=== PATIENT | female | born 1970 | race Caucasian/White ===

== ENCOUNTER 2020-06-23 09:30 | Outpatient (CLI) | payer OTHER, SELFPAY ==
--- NOTE | ~2020-06-23 | MM_ITS ---
EXAMINATION: MM screening [facility] BI w erasto HISTORY: Screening mammogram TECHNIQUE: Craniocaudal and mediolateral oblique 3-D tomosynthesis images were obtained and synthetic 2-D images were generated. CAD analysis was submitted and interpreted. COMPARISON: 05/02/2019, 09/05/2017 bilateral digital screening mammogram examinations 07/07/2016 bilateral diagnostic digital mammogram and Limited bilateral breast ultrasound examination 07/06/2016 bilateral digital screening mammogram BREAST PARENCHYMAL COMPOSITION: There are scattered areas of fibroglandular density. FINDINGS: Stable mild fibroglandular asymmetry. There is no evidence of suspicious mass, calcificatio n, or architectural distortion to suggest malignancy in either breast. There has been no suspicious i nterval change. IMPRESSION: 1. No mammographic evidence of malignancy. 2. Recommend routine screening mammography in one year. BI-RADS Category 2: Benign finding(s). Reviewed, dictated and finalized at location A. OP ENGINEER
== END 2020-06-23 09:31 | disposition home or self-care (01) ==
LOC: ANHIMG 09:34
PROVIDERS: PCP Internal Medicine; Visit Provider Nurse Practitioner
DX: Z12.31 Encounter for screening mammogram for malignant neoplasm of breast (principal)
CPT/HCPCS: 77063; 77067

== ENCOUNTER 2021-07-29 08:28 | Outpatient (CLI) | payer OTHER, SELFPAY ==
--- NOTE | ~2021-07-29 | MM_ITS ---
EXAMINATION: MM screening [facility] BI w erasto HISTORY: Screening mammogram TECHNIQUE: Craniocaudal and mediolateral oblique 3-D tomosynthesis images were obtained and synthetic 2-D images were generated. CAD analysis was submitted and interpreted. COMPARISON: 06/23/2020, 05/02/2019, 08/26/2017 BREAST PARENCHYMAL COMPOSITION: There are scattered areas of fibroglandular density. FINDINGS: There is no evidence of suspicious mass, calcification, or architectural distortion to sugg est malignancy in either breast. There has been no suspicious interval change. IMPRESSION: 1. No mammographic evidence of malignancy. 2. Recommend routine screening mammography in one year. BI-RADS Category 1: Negative Reviewed, dictated and finalized at location A. GAGE PROTECTION SPECIALIST
== END 2021-07-29 08:29 | disposition home or self-care (01) ==
LOC: ANHIMG 08:30
PROVIDERS: PCP Internal Medicine; Visit Provider Nurse Practitioner
DX: Z12.31 Encounter for screening mammogram for malignant neoplasm of breast (principal)
CPT/HCPCS: 77063; 77067

== ENCOUNTER 2022-08-24 07:49 | Outpatient (CLI) | payer OTHER, SELFPAY ==
--- NOTE | ~2022-08-24 | MM_ITS ---
EXAMINATION: MM screening jacklyn BI w erasto HISTORY: Screening TECHNIQUE: Craniocaudal and mediolateral oblique 3-D tomosynthesis images were obtained and synthetic 2-D images were generated. CAD analysis was submitted and interpreted. COMPARISON: Comparison to multiple prior studies sequentially, with oldest reviewed study dated 06/22. BREAST PARENCHYMAL COMPOSITION: There are scattered areas of fibroglandular density. FINDINGS: There is no evidence of suspicious mass, calcification, or architectural distortion to sugg est malignancy in either breast. There has been no suspicious interval change. IMPRESSION: 1. No mammographic evidence of malignancy. 2. Recommend routine screening mammography in one year. BI-RADS Category 1: Negative Reviewed, dictated and finalized at location A. IC OPINION SURVEY TAKER
== END 2022-08-24 07:50 | disposition home or self-care (01) ==
PROVIDERS: PCP Internal Medicine; Visit Provider Nurse Practitioner
DX: Z12.31 Encounter for screening mammogram for malignant neoplasm of breast (principal)
CPT/HCPCS: 77063; 77067

== ENCOUNTER 2023-10-17 14:14 | Outpatient (CLI) | payer OTHER, SELFPAY ==
--- NOTE | ~2023-10-17 | MM_ITS ---
EXAMINATION: MM screening jacklyn BI w erasto HISTORY: Screening mammogram TECHNIQUE: Craniocaudal and mediolateral oblique 3-D tomosynthesis images were obtained and synthetic 2-D images were generated. CAD analysis was submitted and interpreted. COMPARISON: August 24, 2022, July 29, 2021 bilateral screening mammogram examinations BREAST PARENCHYMAL COMPOSITION: There are scattered areas of fibroglandular density. FINDINGS: Occasional bilateral small low-density circumscribed masses. There is no evidence of suspic ious mass, calcification, or architectural distortion to suggest malignancy in either breast. There h as been no suspicious interval change. IMPRESSION: 1. No mammographic evidence of malignancy. 2. Recommend routine screening mammography in one year. BI-RADS Category 2: Benign finding(s). Reviewed, dictated and finalized at location A.
== END 2023-10-17 14:15 | disposition home or self-care (01) ==
LOC: ANHIMG 14:17
PROVIDERS: PCP Internal Medicine; Visit Provider Nurse Practitioner
DX: Z12.31 Encounter for screening mammogram for malignant neoplasm of breast (principal)
CPT/HCPCS: 77063; 77067

== ENCOUNTER 2024-10-30 12:17 | Outpatient (CLI) | payer OTHER, SELFPAY ==
--- NOTE | ~2024-10-30 | MM_ITS ---
EXAMINATION: MM screening [facility] BI w erasto HISTORY: Screening TECHNIQUE: Craniocaudal and mediolateral oblique 3-D tomosynthesis images were obtained and synthetic 2-D images were generated. CAD analysis was submitted and interpreted. COMPARISON: Comparison to multiple prior studies sequentially, with oldest reviewed study dated 09/05. BREAST PARENCHYMAL COMPOSITION: Not dense: There are scattered areas of fibroglandular density. FINDINGS: There is a new mass in the lower outer quadrant of the right breast, middle third. The left breast is stable without evidence for malignancy. There are stable intramammary lymph nodes in the u pper outer quadrant. IMPRESSION: 1. New right breast mass, lower outer quadrant, middle third. 2. Additional mammographic views and possible breast ultrasound are recommended. BI-RADS Category 0: Incomplete: Needs additional imaging evaluation. Reviewed, dictated and finalized at location A. IMPRESSION: 1. New right breast mass, lower outer quadrant, middle third. 2. Additional mammographic views and possible breast ultrasound are recommended . BI-RADS Category 0: Incomplete: Needs additional imaging evaluation.
--- NOTE | ~2024-10-30 | DEXA_ITS ---
Bone Density Report Name: LORI AMAYA Age: 54 Sex: Female Ethnicity: White Date of : 1970 Indication: postmenopausal; screening for osteoporosis; height loss; Referring Provider: FAMILIA, GUILLERMINA Study: Bone densitometry was performed. Exam Date: October 30, 2024 Accession number: [id number] Bone Density: Region BMD T-score Z-score Classification AP Spine(L1-L4) 0.969 -0.7 0.2 Normal Femoral Neck (Left) 0.721 -1.2 -0.2 Osteopenia Total Hip (Left) 0.978 0.3 0.9 Normal Femoral Neck (Right) 0.626 -2.0 -1.1 Osteopenia Total Hip (Right) 0.965 0.2 0.8 Normal Femoral Neck Mean 0.673 -1.6 -0.7 Osteopenia Total Hip Mean 0.971 0.2 0.8 Normal World Health Organization criteria for BMD impression classify patients as: Normal (T-score at or above -1.0), Osteopenia (T-score between -1.0 and -2.5), or Osteoporosis (T-score at or below -2.5). Clinical Information Provided by Patient: Patient maximum height was 64 No regular weight bearing exercise Drinks caffeinated beverages Onset of menses at age 15 Number of children 2 Impression: The patient has low bone mass, based on the Right Femoral Neck T-score. Discussion: BONE DENSITY IS LOW AT ONE OR MORE SKELETAL SITES. This patient's lowest T-score is low at one or more skeletal sites. It meets the World Health Organization's (WHO) criteria for ?low bone mass? (T-score between -1.0 and -2.5). The patient's 10-year risk of fracture as calculated by FRAX is less than the threshold where pharmacological therapy is recommended by the National Osteoporosis Foundation (NOF). However, all treatment decisions require clinical judgment and consideration of individual patient factors, including patient preferences, comorbidities, previous drug use, risk factors not captured in the FRAX model (e.g., frailty, falls, vitamin D deficiency, increased bone turnover, interval significant decline in bone density) and possible under or overestimation of fracture risk by FRAX. The patient should follow a healthful lifestyle (good nutrition with adequate calcium and vitamin D, and appropriate weight-bearing exercise). Follow-Up: Consider repeating this study in 2 to 3 years to reassess this patient's status, or sooner if there is some new clinical indication. Reported by: REINIER on 10/31/2024 7:16:00 AM. Reviewed, dictated and finalized at location A.
--- OUTSIDE RECORDS SUMMARY | 2024-10-30 12:44 | XMS_ITS | Referral Summary ---
Author Organization [address] Address [address] [place] [phone] Care Team Providers Care Asset Analyst Name Role Phone Ricardo Tran MD Primary Care Provider [phone] Allergies Active Allergy Reactions Criticality Noted Date Comments Amoxicillin Rash Medium 04/21/2018 Medications levothyroxine (SYNTHROID, LEVOTHROID) 75 mcg tablet TK 1 T PO QD 3 03/20/2018 Active FLUZONE QUAD 7657-9130, PF, 60 mcg (15 mcg x 4)/0.5 mL syringe ADM 0.5ML IM UTD 0 05/05/2018 Active Active Problems Problem Noted Date Diagnosed Date Screening for colon cancer 01/10/2022 Overview (01/10/2022): Added automatically from request for surgery [id number] Social History Tobacco Use Types Packs/Day Years Used Date Smoking Tobacco: Never Smokeless Tobacco: Never Personal Safety Answer Date Recorded Getting School Help Needed Not on file 10/06 Comments Unknown Sex and Gender Information Value Date Recorded Sex Assigned at Not on file Legal Sex Female 8:41 PM CDT Gender Identity Not on file Sexual Orientation Not on file Last Filed Vital Signs Vital Sign Reading Time Taken Comments Blood Pressure 130/78 01/20/2022 11:35 AM CDT Pulse 76 01/20/2022 11:35 AM CDT Temperature 36.5 C (97.7 F) 01/20/2022 11:35 AM CDT Respiratory Rate 18 01/20/2022 11:35 AM CDT Oxygen Saturation 98% 01/20/2022 11:35 AM CDT Inhaled Oxygen Concentration - - Weight 79.8 kg (176 lb) 01/20/2022 9:39 AM CDT Height 160 cm (5' 3 ) 01/20/2022 9:39 AM CDT Body Mass Index 31.18 01/20/2022 9:39 AM CDT Plan of Treatment Not on file Procedures Procedure Name Priority Date/Time Associated Diagnosis Comments COLONOSCOPY 01/20/2022 9:37 AM CDT from Last 3 Months or Most Recently Relevant to Health Maintenance Results * COLONOSCOPY (01/20/2022 9:37 AM CDT) Anatomical Region Laterality Modality Other Narrative Procedure Note Paul Holley MD - 01/20/2022 9:37 AM CDT [facility] Patient Name: Lori Herrera Procedure Date: 01/20/2022 9:37 AM Date of : 1970 Admit Type: Outpatient Age: 51 Gender: Female Attending MD: Paul Holley M.D. Room: [facility] ENDOSCOPY ROOM 2 Note Status: Finalized Patient Profile: Refer to note in patient chart for documentation of history and physical. Procedure: Colonoscopy Indications: Screening for colorectal malignant neoplasm, Thisis the patient's first colonoscopy Referring MD: Ricardo Sands M.D. Providers: Paul Holley M.D. Impression: - Hemorrhoids found on perianal exam. - Diverticulosis at the hepatic flexure. - The examination was otherwise normal. - No specimens collected. Recommendation: - Discharge patient to home. - Resume previous diet. - Continue present medications. - Repeat colonoscopy in 10 years for screening purposes. - Return to primary care physician as previously scheduled. Medicines: Propofol per Anesthesia Complications: No immediate complications. Estimated Blood Loss: Estimated blood loss: none. Procedure: Pre-Anesthesia Assessment: - This assessment was completed [Time ofAssessment] prior to the administration of sedation. The benefits, risks and alternatives of theprocedure and sedation were discussed and informed consentwas obtained. All questions were answered. Please referto the signed informed consent document in the medical record. The bowel preparation used was Miralax via single dose instruction. The bowel preparation used was bisacodyl tablets via single dose instruction.The scope was passed under direct vision. TheColonoscope [id number] was introduced through the anus and advanced to the the cecum, identified by appendiceal orifice and ileocecal valve. The colonoscopy was performed without difficulty. The patient tolerated the procedure well. The qualityof the bowel preparation was good. The ileocecalvalve, appendiceal orifice, and rectum werephotographed. Findings: Hemorrhoids were found on perianal exam. A single small-mouthed diverticulum was found in the hepaticflexure. The exam was otherwise without abnormality. Electronically signed by Paul Holley M.D. Paul Holley M.D. 01/20/2022 11:07:00 AM Number of Addenda: 0 Note Initiated On: 01/20/2022 9:37 AM Procedure Code(s): --- Professional --- G0121, Colorectal cancer screening; colonoscopy on individual not meeting criteria for high risk Diagnosis Code(s): --- Professional --- K57.30, Diverticulosis of large intestine without perforation orabscess without bleeding K64.9, Unspecified hemorrhoids Z12.11, Encounter for screening for malignant neoplasm of colon CPT copyright 2020 [employer]. All rights reserved. The codes documented in this report are preliminary and upon machine shop worker reviewmay be revised to meet current compliance requirements. Recognized by the [employer] for promoting quality in endoscopy Paul Holley MD ENDOSCOPY PROCEDURES Final Re sult from Last 3 Months or Most Recently Relevant to Health Maintenance Insurance [facility] CHOICE PLUS [facility] HMO/PPO Address: [place] [address] [facility] CHOICE PLUS [facility] H[facility]/PPO Address: [address] [address] [place] [address] Advance Directives For more information, please contact: [phone] * Full Code (Latest Code Status on File) Date Activated Date Inactivated Comments 01/20/2022 9:32 AM 01/20/2022 3:59 PM * Full Code Date Activated Date Inactivated Comments 01/20/2022 9:32 AM 01/20/2022 9:32 AM Care Teams Asset Analyst Relationship Specialty Start Date End Date Ricardo Tran MD [address] [place] [address] PCP - General 01/20/22
--- OUTSIDE RECORDS SUMMARY | 2024-10-30 12:44 | XMS_ITS | Clinical Summary ---
Author Organization [address] Address [address] [place] [id number] Care Team Providers Care Spray Dyer Name Role Phone Ricardo Tran MD Primary Care Provider [phone] Allergies Active Allergy Reactions Criticality Noted Date Comments Amoxicillin Rash Medium 04/21/2018 Medications levothyroxine (SYNTHROID, LEVOTHROID) 75 mcg tablet TK 1 T PO QD 3 03/20/2018 Active FLUZONE QUAD 8647-4380, PF, 60 mcg (15 mcg x 4)/0.5 mL syringe ADM 0.5ML IM UTD 0 05/05/2018 Active Active Problems Problem Noted Date Diagnosed Date Screening for colon cancer 01/10/2022 Overview (01/10/2022): Added automatically from request for surgery [id number] Surgical History Surgery Date Site/Laterality Comments COLONOSCOPY 01/20/2022 Medical History Medical History Date Comments Thyroid disease Social History Tobacco Use Types Packs/Day Years Used Date Smoking Tobacco: Never Smokeless Tobacco: Never Personal Safety Answer Date Recorded Getting School Help Needed Not on file 10/06 Comments Unknown Sex and Gender Information Value Date Recorded Sex Assigned at Not on file Legal Sex Female 8:41 PM CDT Gender Identity Not on file Sexual Orientation Not on file Obstetrics History Last Filed Vital Signs Vital Sign Reading [...] 01/20/2022 9:39 AM CDT Plan of Treatment Health Maintenance Due Date Last Done Comments Breast Cancer Screening-Mammogram 1970 Cervical Cancer Screening 1970 Depression Screening 1970 Hepatitis C Screening 1970 DTaP/Tdap/Td Vaccine (1 - Tdap) 10/03/1982 Hepatitis B Screening 10/03/1989 Regular Well Visit/Exam 18-64 10/03/1989 Zoster Vaccine (1 of 2) 10/03/2021 Influenza Vaccine (Season Ended) 2025 Colon Cancer Screening-Colonoscopy 01/21/20322021 Pneumococcal vaccine <65 Aged Out No longer eligible based on patient's age to complete this topic Procedures Procedure Name Priority Date/Time Associated Diagnosis Comments COLONOSCOPY 01/20/2022 9:37 AM CDT from Last 3 Months or Most Recently Relevant to Health Maintenance Results * COLONOSCOPY (01/20/2022 9:37 AM CDT) Anatomical Region Laterality Modality Other Narrative Procedure Note Paul Holley MD - 01/20/2022 9:37 AM CDT [facility] Patient Name: Lori Herrera Procedure Date: 01/20/2022 9:37 AM Date of : 1970 Admit Type: Outpatient Age: 51 Gender: Female Attending MD: Paul Holley M.D. Room: [facility] 2 Note Status: Finalized Patient [...] scope was passed under direct vision. TheColonoscope [id number] was introduced through the anus and advanced [...] malignant neoplasm of colon CPT copyright 2020 [employer]. All rights reserved. The codes documented in this report are preliminary and upon hvac installer reviewmay be revised to meet current compliance requirements. Recognized by the [employer] for promoting quality in endoscopy Paul Holley MD ENDOSCOPY PROCEDURES Final Re sult from Last 3 Months or Most Recently Relevant to Health Maintenance Insurance [facility] CHOICE PLUS [place] [id number] CHOICE PLUS Advance Directives For more information, please contact: [phone] * Full Code (Latest Code Status on File) Date Activated Date Inactivated Comments 01/20/2022 9:32 AM 01/20/2022 3:59 PM * Full Code Date Activated Date Inactivated Comments 01/20/2022 9:32 AM 01/20/2022 9:32 AM Care Teams Spray Dyer Relationship Specialty Start Date End Date Ricardo Tran MD [address] [place] [id number] PCP - General 01/20/22
== END 2024-10-30 12:18 | disposition home or self-care (01) ==
LOC: CHSIMG 12:21
PROVIDERS: PCP Internal Medicine; Visit Provider Nurse Practitioner Women's Health
DX: Z12.31 Encounter for screening mammogram for malignant neoplasm of breast (principal); Z78.0 Asymptomatic menopausal state; M85.89 Other specified disorders of bone density and structure, multiple sites; R92.8 Other abnormal and inconclusive findings on diagnostic imaging of breast
CPT/HCPCS: 77063; 77067; 77080

== ENCOUNTER 2024-11-04 08:47 | Outpatient (CLI) | payer OTHER, SELFPAY ==
--- NOTE | ~2024-11-04 | MMUS_ITS ---
EXAMINATION: MM diagnostic jacklyn RT w erasto, US breast RT limited HISTORY: Follow-up right breast mass TECHNIQUE: Additional 3-D tomosynthesis images of the right breast were performed and synthetic 2-D i mages were generated. CAD analysis was submitted and interpreted. High resolution Limited right breas t ultrasound was performed. COMPARISON: Comparison to multiple prior studies sequentially, with oldest reviewed study dated 04/22. BREAST PARENCHYMAL COMPOSITION: Not dense: There are scattered areas of fibroglandular density. FINDINGS: MAMMOGRAPHIC FINDINGS: There is a persistent mass in the lower aspect of the right breast. There are no suspicious calcifica tions or architectural distortion. ULTRASOUND: Limited right breast ultrasound: At 7:00, 5 cm from the nipple there is an oval circumscribed paralle l oriented hypoechoic mass measuring 5 mm without internal vascularity or posterior features. At 7:00 , 5 cm from the nipple there is a 4 mm cyst. At 9:00, 8 cm from the nipple there is a 6 mm cyst. IMPRESSION: 1. Probable benign findings of the right breast. 2. Recommend 6 month follow-up diagnostic right mammogram and Limited right breast ultrasound BI-RADS category 3, probably benign findings. Reviewed, dictated and finalized at location B. IMPRESSION: 1. Probable benign findings of the right breast. 2. Recommend 6 month follow-up diagnostic right mammogram and Limited right pranav ast ultrasound BI-RADS category 3, probably benign findings.
--- OUTSIDE RECORDS SUMMARY | 2024-11-04 09:08 | XMS_ITS | Referral Summary ---
Author Organization [address] Address [address] [place] [phone] Care Team Providers Care Laborer Wrecking And Salvaging Name Role Phone Ricardo Tran MD Primary Care Provider [phone] Allergies Active Allergy Reactions Criticality Noted Date Comments Amoxicillin Rash Medium 04/21/2018 Medications levothyroxine (SYNTHROID, LEVOTHROID) 75 mcg tablet TK 1 T PO QD 3 03/20/2018 Active FLUZONE QUAD 9620-3953, PF, 60 mcg (15 mcg x 4)/0.5 mL syringe ADM 0.5ML IM UTD 0 05/05/2018 Active Active Problems Problem Noted Date Diagnosed Date Screening for colon cancer 01/10/2022 Overview (01/10/2022): Added automatically from request for surgery [id number] Social History Tobacco Use Types Packs/Day Years [...] Holley MD - 01/20/2022 9:37 AM CDT [facility] Patient Name: Lori Herrera Procedure Date: 01/20/2022 9:37 AM Date of : 1970 Admit Type: Outpatient Age: 51 Gender: Female Attending MD: Paul Holley M.D. Room: [facility] ROOM 2 Note Status: Finalized [...] scope was passed under direct vision. TheColonoscope [id number] was introduced through the anus and advanced [...] malignant neoplasm of colon CPT copyright 2020 [employer] [employer]. All rights reserved. The codes documented in this report are preliminary and upon restorative coordinator reviewmay be revised to meet current compliance requirements. Recognized by the [employer] [place] [employer]intestinal Endoscopy for promoting quality in endoscopy Paul Holley MD ENDOSCOPY PROCEDURES Final Re sult from Last 3 Months or Most Recently Relevant to Health Maintenance Insurance [facility] CHOICE PLUS [facility] CHOICE PLUS Advance Directives For more information, please contact: [phone] * Full Code (Latest Code Status on File) Date Activated Date Inactivated Comments 01/20/2022 9:32 AM 01/20/2022 3:59 PM * Full Code Date Activated Date Inactivated Comments 01/20/2022 9:32 AM 01/20/2022 9:32 AM Care Teams Laborer Wrecking And Salvaging Relationship Specialty Start Date End Date Ricardo Tran MD [address] [place] [address] PCP - General 01/20/22
--- OUTSIDE RECORDS SUMMARY | 2024-11-04 09:08 | XMS_ITS | Clinical Summary ---
Author Organization [address] Address [address] [place] [phone] Care Team Providers Care Stapler Hand Name Role Phone Ricardo Tran MD Primary Care Provider [phone] Allergies Active Allergy Reactions Criticality Noted Date Comments Amoxicillin Rash Medium 04/21/2018 Medications levothyroxine (SYNTHROID, LEVOTHROID) 75 mcg tablet TK 1 T PO QD 3 03/20/2018 Active FLUZONE QUAD 3692-9026, PF, 60 mcg (15 mcg x 4)/0.5 mL syringe ADM 0.5ML IM UTD 0 05/05/2018 Active Active Problems Problem Noted Date Diagnosed Date Screening for colon cancer 01/10/2022 Overview (01/10/2022): Added automatically from request for surgery [id number] Surgical History Surgery Date Site/Laterality Comments COLONOSCOPY [...] Female Attending MD: Paul Holley M.D. Room: [facility] ENDOSCOPY ROOM 2 Note Status: Finalized [...] scope was passed under direct vision. TheColonoscope [id number] was introduced through the anus and advanced [...] malignant neoplasm of colon CPT copyright 2020 [employer]. All rights reserved. The codes documented in this report are preliminary and upon counter intelligence reviewmay be revised to meet current compliance requirements. Recognized by the [employer] for promoting quality in endoscopy Paul Holley MD ENDOSCOPY PROCEDURES Final Re sult from Last 3 Months or Most Recently Relevant to Health Maintenance Insurance [facility] CHOICE PLUS [facility] H[facility]/PPO Address: [address] [address] [place] [id number] CHOICE PLUS [facility] H[facility]/PPO Address: [facility] [address] [place] [address] Advance Directives For more information, please contact: [phone] * Full Code (Latest Code Status on File) Date Activated Date Inactivated Comments 01/20/2022 9:32 AM 01/20/2022 3:59 PM * Full Code Date Activated Date Inactivated Comments 01/20/2022 9:32 AM 01/20/2022 9:32 AM Care Teams Stapler Hand Relationship Specialty Start Date End Date Ricardo Tran MD [address] [place] [id number] PCP - General 01/20/22
== END 2024-11-04 08:48 | disposition home or self-care (01) ==
PROVIDERS: PCP Internal Medicine; Visit Provider Obstetrics & Gynecology Gynecology
DX: R92.8 Other abnormal and inconclusive findings on diagnostic imaging of breast (principal)
CPT/HCPCS: 76642; 77061; 77065; G0279

== ENCOUNTER 2025-03-31 07:17 | Outpatient (CLI) | payer OTHER, SELFPAY ==
--- NOTE | ~2025-03-31 | US_ITS ---
EXAMINATION: US pelvic complete w TV DATE: 03/31/2025 07:47 INDICATION: Postmenopausal bleeding. TECHNIQUE: Multiple transabdominal and transvaginal sonographic images of the pelvis were obtained. COMPARISON: Ultrasound 08/18/2009 FINDINGS: TRANSABDOMINAL ULTRASOUND: The uterus measures 8.2 x 4.4 x 3.8 cm. There is no free fluid in the pelvis. TRANSVAGINAL ULTRASOUND: The endometrial complex measures 7 mm in thickness. There is a 1.2 cm intramural fibroid. There are nabothian cysts in the cervix. The right ovary is not visualized. The left ovary measures 1.3 x 1.2 x 1.0 cm. IMPRESSION: 1. Thickened endometrial complex. The differential diagnosis includes endometrial hyperplasia, polyp, and carcinoma. Consider biopsy. 2. Uterine fibroid. Reviewed, dictated and finalized at location E. IMPRESSION: 1. Thickened endometrial complex. The differential diagnosis includes endometri al hyperplasia, polyp, and carcinoma. Consider biopsy. 2. Uterine fibroid.
== END 2025-03-31 07:18 | disposition home or self-care (01) ==
PROVIDERS: PCP Nurse Practitioner Family
DX: N95.0 Postmenopausal bleeding (principal); R93.89 Abnormal findings on diagnostic imaging of other specified body structures; D25.9 Leiomyoma of uterus, unspecified
CPT/HCPCS: 76830; 76856

== ENCOUNTER 2025-04-06 01:06 | Day surgery (SDC) | payer OTHER, SELFPAY ==
[2025-04-02 16:05] VITALS: BMI 33.5
--- NOTE | 2025-04-02 16:11 | PC.NURSE ---
Report to the Outpatient Waiting Room, entrance under the green pavilion located off [facility], at time _0715_ on date _[id number]_. Planned Procedure Time: _09_.? Time changes happen often and if your time is changed the preop area will call you the afternoon before. - You and your visitor will be asked to self-screen and do not enter if you have any COVID symptoms. Please call surgeon if you need to reschedule. - A mask is optional within the hospital at this time. Patients may have clear liquids (water, carbonated beverages, clear teas, apple juice) until 3 hours prior to surgery with a maximum of 20 ounces. - No food from midnight until time of surgery and no smoking, or chewing tobacco (or any form of nicotine). No chewing gum, candy or mints. Take only the following medications with a SIP of water on the morning of surgery: __Levothyroxine___ DO NOT STOP ANY OF YOUR OTHER PRESCRIPTION MEDICATIONS PRIOR TO SURGERY EXCEPT THE FOLLOWING Hold all vitamins and supplements for 3 days per anesthesiologist. Medications to discontinue per physician Date to take last dose Please no make-up, nail yemeni, hairspray, perfume, deodorant, or body powder the day of surgery.? No jewelry (including any body piercings) or valuables the day of surgery, leave them at home.? Please take a shower or bath the night before, or the morning of, surgery with an antibacterial soap.? Wear comfortable, loose fitting clothing.? - Jewelry must be removed prior to entering the operating room.? Rings and piercings that are not removed may be cut off. - The hospital will not accept responsibility for valuables.? - Please leave all valuables, including medications, at home the day of surgery. If you are going home after surgery, a licensed flatbed company driver must drive you home.? - NO public transportation without another adult if you receive anesthesia. - We recommend that an adult stay with you for 24 hours following discharge. - We also recommend that you do not drive, make important decision, drink alcoholic beverages, or take any drugs that were not prescribed by your health care provider for at least 24 hours after your discharge time. Follow any additional instructions given to you from your surgeon. Telephone instructions given to ___Jill__and asked if any additional questions and then verbalized understanding. Patient advised to call surgeon office or pre surgery nurse liaison [phone] if any additional questions.
--- OUTSIDE RECORDS SUMMARY | 2025-04-06 01:09 | XMS_ITS | Clinical Summary ---
Author Organization [address] Address [address] [place] [id number] Care Team Providers Care Unix Manager Name Role Phone Aliyah Thompson NP Primary Care Provider [phone] Stephany Weaver MD Unavailable [phone] Allergies Active Allergy Reactions Criticality Noted Date Comments Amoxicillin Rash Medium 04/21/2018 Medications levothyroxine (SYNTHROID, LEVOTHROID) 75 mcg tablet TK 1 T PO QD 3 03/20/2018 Activ e FLUZONE QUAD [id number], PF, 60 mcg (15 mcg x 4)/0.5 mL syringe ADM 0.5ML IM UTD 0 05/05/2018 Active ibandronate (BONIVA) 150 mg tablet Take 1 tablet (150 mg total) by mouth every 30 (thirty) days 11/14/2024 Active atorvastatin (LIPITOR) 10 mg tablet Take 1 tablet (10 mg total) by mouth daily Active cholecalciferol (VITAMIN D-3) 50,000 unit capsule Take 1 capsule (50,000 Units total) by mouth once a week Active Active Problems Problem Noted Date Diagnosed Date White coat syndrome without diagnosis of hyperte nsion 02/04/2025 Assessment & Plan (02/08/2025 11:07 AM CDT): Mixed hyperlipidemia 02/04/2025 Assessment & Plan (02/08/2025 11:07 AM CDT): Osteopenia after menopause 02/04/2025 Acquired hypothyroidism 02/04/2025 Assessment & Plan (02/08/2025 11:07 AM CDT): Screening for colon cancer 01/10/2022 Overview (01/10/2022): Added automatically from request for surgery [id number] Encounters Date Type Department Care Team Description 02/08/2025 Results Follow-Up [facility] Medical [facility] at [address] [phone] Aliyah Thompson NP Gamma GT, Comprehensive metabolic panel, eGFR 02/06/2025 9:48 AM CDT - 02/06/2025 11:59 PM CDT Hospital Encounter [address] [address] Elevated liver enzymes Discharge Disposition: Discharge to home or self care 02/06/2025 9:45 AM CDT Lab [facility] Outpatient Lab at [address] [phone] 02/04/2025 12:30 PM CDT Office Visit [facility] Primary [facility] at [address] [phone] Aliyah Thompson NP Mixed hyperlipidemia (Primary Dx); Acquired hypothyroidism; White coat syndrome without diagnosis of hypertension; Elevated liver enzymes 02/04/2025 Orders Only [facility] Primary [facility] at [address] [phone] ProviderLio MD 02/04/2025 Telephone [facility] at [address] [phone] Aliyah Thompson NP from Last 3 Months Immunizations Immunization Administration Dates Next Due Influenza, Quadrivalent, Spl it, Intramuscular 05/03/2019 Influenza, Quadrivalent, Spl it, Preservative Free, Intramuscular 05/18/2021,05/08/2020,05/04/2018,05/02 Influenza, Trivalent, IM (MDV) 05/02/2017,2012 Influenza, Trivalent, Preser vative Free, Intramuscular 03/25/2016,05/14/2015 Influenza, Trivalent, Recomb inant, Egg Free, Preservative Free, Antibiotic Free, IM (FLUBLOK) 05/16/2024 Surgical History Surgery Date Site/Laterality Comments COLONOSCOPY 01/20/2022 Medical History Medical History Date Comments Thyroid disease Osteopenia Hyperlipidemia Family History Medical History Relation Name Comments Hypertension Mother Kidney disease Mother Stroke Mother Breast cancer Paternal Grandmother Relation Name Status Comments Mother Paternal Grandmother Social History Tobacco Use Types Packs/Day Years Used Date Smoking Tobacco: Never Smokeless Tobacco: Never PHQ-2 Answer Date Recorded PHQ-2 Total Score (If total score is 3 or more points, staff should administer the PHQ-9) 0 02/04/2025 Comments Unknown Sex and Gender Information Value Date Recorded Sex Assigned at Not on file Legal Sex Female 8:41 PM CDT Gender Identity Not on file Sexual Orientation Not on file Obstetrics History Last Filed Vital Signs Vital Sign Reading Time Taken Comments Blood Pressure 170/104 02/04/2025 11:34 AM CDT Pulse 88 02/04/2025 11:34 AM CDT Temperature 36.6 C (97.8 F) 02/04/2025 11:34 AM CDT Respiratory Rate 18 01/20/2022 11:35 AM CDT Oxygen Saturation 98% 02/04/2025 11:34 AM CDT Inhaled Oxygen Concentration - - Weight 88 kg (194 lb) 02/04/2025 11:34 AM CDT Height 162.6 cm (5' 4) 02/04/2025 11:34 AM CDT Body Mass Index 33.3 02/04/2025 11:34 AM CDT Plan of Treatment Health Maintenance Due Date Last Done Comments Hepatitis C Screening 1970 DTaP/Tdap/Td Vaccine (1 - Tdap) 10/03/1982 Hepatitis B Screening 10/03/1989 Regular Well Visit/Exam 18-64 10/03/1989 Covid-19 Vaccine (3 - Pfizer risk series) 12/14/2020 11/16/2020, 10/26/2020 Zoster Vaccine (1 of 2) 10/03/2021 Influenza Vaccine (#1) 2025 , 05/18/2021, 05/08/2020, Additional history exists Cervical Cancer Screening 04/22/2025 04/22/2024 Breast Cancer Screening-Mammogram 10/30/2025 10/30/2024 Depression Screening 02/04/2026 02/04/2025 Colon Cancer Screening-Colonoscopy 01/21/2032 01/20/2022 Pneumococcal vaccine <65 Aged Out No longer eligible based on patient's age to complete this topic Procedures Procedure Name Priority Date/Time Associated Diagnosis Comments EGFR Routine 02/06/2025 10:12 AM CDT Elevated liver enzymes COMPREHENSIVE METABOLIC PANEL Routine 02/06/2025 10:12 AM CDT Elevated liver enzymes GAMMA GT Routine 02/06/2025 10:12 AM CDT Elevated liver enzymes HM MAMMOGRAPHY Routine 10/30/2024 8:01 AM CDT COLONOSCOPY 01/20/2022 9:37 AM CDT from Last 3 Months or Most Recently Relevant to Health Maintenance Results * eGFR (02/06/2025 10:12 AM CDT) eGFR 85 >=60 mL/min/1. 73 m2 Comment: Interpretive Data Reference Interval Normal >/= 90 mL/min/1.73m2 Mildly decreased* 60 - 89 mL/min/1.73m2 Mildly to moderately decreased 45 - 59 mL/min/1.73m2 Moderately to severely decreased 30 - 44 mL/min/1.73m2 Severely decreased 15 - 29 mL/min/1.73m2 Kidney Failure < 15 mL/min/1.73m2 *Relative to young adult level Estimated glomerular filtration rate is determined by the 2020 CKD-EPI equation recommended by the National Kidney Foundation (A Unifying Approach to GFR Estimation: Recommendations of the NKF-ASK Task Force on Reassessing the Inclusion of Race in Diagnosing Kidney Disease, JASN 2020). The CKD-EPI equation should not be used for patients with unstable renal function and has not been validated in children and those over 70. Current interpretive data was last reviewed 2021. Blood 02/06/2025 10:1 2 AM CDT 02/06/2025 2:53 PM CDT Aliyah Thompson NP LAB BLOOD ORDERABLES Final Re sult Performing Organization Address City/[facility] Co de Phone Number SUNDAY CROOKS [address] Department [place] [address] * (ABNORMAL) Gamma GT (02/06/2025 10:12 AM CDT) GGT 129(H) 5 - 35 Units/L Blood 02/06/2025 10:1 2 AM CDT 02/06/2025 2:47 PM CDT Aliyah Thompson HUMAN RESOURCES LEADER LAB BLOOD ORDERABLES Final Re sult Performing Organization Address [facility] de Phone Number SUNDAY CROOKS [address] Department [place] [employer] [place] [address] * Comprehensive metabolic panel (02/06/2025 10:12 AM CDT) Pathologist [facility] Sodium 141 135 - 145 mmol/L Potassium, pl 4.6 3.3 - 4.9 mmol/L [facility] Chloride 106 97 - 110 mmol/L [facility] CO2 26 22 - 32 mmol/L [facility] Anion gap 9 2 - 15 mmol/L [facility] BUN 11 6 - 25 mg/dL [facility] Creatinine 0.82 0.60 - 1.10 mg/dL [facility] Glucose 89 70 - 199 mg/dL [facility] Comment: Interpretive Data Fasting glucose >/= 126 mg/dl is diagnostic for diabetes. Fasting is defined as no caloric intake for at least 8 hours. Fasting glucose between 100 mg/dl to 125 mg/dl is diagnostic of prediabetes. In a patient with classic symptoms of hyperglycemia or hyperglycemic crisis, a random glucose >/= 200 mg/dl is diagnostic for diabetes. In the absence of unequivocal hyperglycemia, results should be confirmed by repeat testing. The classification and Diagnosis of Diabetes Diabetes Care 2021; 46: S19-S40. Current interpretive data was last revised 2022. Calcium 9.3 8.5 - 10.3 mg/dL [facility] Bilirubin, total 0.7 0.1 - 1.2 mg/dL [facility] Protein, pl 7.4 6.5 - 8.5 g/dL [facility] Albumin 4.1 3.5 - 5.0 g/dL [facility] Alk phos 125 40 - 130 Units/L [facility] ALT 45 7 - 45 Units/L [facility] AST 34 10 - 45 Units/L [facility] Blood 02/06/2025 10:1 2 AM CDT 02/06/2025 2:47 PM CDT Aliyah Thompson NP LAB BLOOD ORDERABLES Final Re sult [facility]DAY [address] [address] [place] [address] * HM MAMMOGRAPHY (10/30/2024 8:01 AM CDT) Historical Provider HEALTH MAINTENANCE Final Result * COLONOSCOPY (01/20/2022 9:37 AM CDT) Anatomical Region Laterality Modality Other Narrative Procedure Note Paul Holley MD - 01/20/2022 9:37 AM CDT [facility] Patient Name: Lori Herrera Procedure Date: 01/20/2022 9:37 AM Date of : 1970 Admit Type: Outpatient Age: 51 Gender: Female Attending MD: Paul Holley M.D. Room: [facility] 2 Note Status: Finalized Patient [...] scope was passed under direct vision. TheColonoscope [id number] was introduced through the anus and advanced [...] malignant neoplasm of colon CPT copyright 2020 [employer]. All rights reserved. The codes documented in this report are preliminary and upon division superintendent reviewmay be revised to meet current compliance requirements. Recognized by the [employer] for promoting quality in endoscopy Paul Holley MD ENDOSCOPY PROCEDURES Final Re sult from Last 3 Months or Most Recently Relevant to Health Maintenance Insurance [facility]PPO Address: [facility] [address] [place] [address] [facility]/PPO Address: [place] [address] Advance Directives For more information, please contact: [phone] * Full Code (Latest Code Status on File) Date Activated Date Inactivated Comments 01/20/2022 9:32 AM 01/20/2022 3:59 PM * Full Code Date Activated Date Inactivated Comments 01/20/2022 9:32 AM 01/20/2022 9:32 AM Care Teams Unix Manager Relationship Specialty Start Date End Date Aliyah Thompson NP [address] [facility] [address] [place] [address] PCP - General Family Medicine 02/04/25 Stephany Weavre MD [address] [place] [address] Referring Physician Gynecology 02/04/25
--- OUTSIDE RECORDS SUMMARY | 2025-04-06 01:09 | XMS_ITS | Encounter Summary ---
Author Organization [facility] Healthcare Address [address] [place] [address] Care Team Providers Care Slubber Machine Operator Name Role Phone Aliyah Thompson NP Primary Care Provider [phone] Stephany Weaver MD Unavailable [phone] Encounter Details Date Type Department Care Team (Latest Contact Info) Description 02/08/2025 Results Follow-Up [facility] Primary Care at [address] [phone] Aliyah Thompson NP [address] [facility] [address] [place] [address] Gamma GT, Comprehensive metabolic panel, eGFR Social History Tobacco Use Types Packs/Day Years [...] on file Sexual Orientation Not on file documented as of this encounter Plan of Treatment Not on file documented as of this encounter Visit Diagnoses Not on filedocumented in this encounter Care Teams Slubber Machine Operator Relationship Specialty Start Date End Date Aliyah Thompson NP [address] [place] [address] [address] [place] [address] PCP - General Family Medicine 02/04/25 Stephany Weaver MD [address] [place] [address] Referring Physician Gynecology 02/04/25 documented as of this encounter
--- NOTE | 2025-04-06 07:10 | WPDHPUPDATE1 ---
History and Physical Update Update Date/Time: 04/06/25 07:10 History and Physical has been reviewed, including an updated exam of the patient. There are NO changes in the patient's condition. Risks, benefits, and alternatives have been discussed and questions answered. Patient agrees to proceed with procedure.
--- NOTE | 2025-04-06 07:11 | P.HP_ITS ---
History of Present Illness History of Present Illness Consent: Risks, benefits, and alternatives have been discussed and questions answered. Patient agrees to proceed with procedure. Chief complaint: post menopausal bleeding Narrative: Ximena Herrera is a 54 year old female with postmenopausal bleeding. Options were discussed with the patient and she has elected to proceed with D&C hysteroscopy. Risks of infection, bleeding and perforation are reviewed. P ossible pathology was discussed. Patient voices understanding and agrees to proceed. 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 Family History Family History (Updated 02/18/16 @ 23:21 by DOCTOR UNKNOWN) Mother Patient's mother is in good health Father Patient's father is in good health Social History Social History Smoking status: Never smoker Second hand tobacco smoke exposure: No Alcohol intake: never Living arrangements: with family Spiritual care concerns: No Meds Home Medications and Allergies Home Medications ?Medication ?Instructions ?Recorded ?Confirmed ?Type atorvastatin 10 mg tablet 10 mg PO HS 04/02/25 5 History ergocalciferol (vitamin D2) 1,250 50,000 unit PO WEEKL Y 04/02/25 04/02/25 History mcg (50,000 unit) capsule ibandronate 150 mg tablet 150 mg PO MONTHLY 04/02/25 0 04/02/25 History levothyroxine 75 mcg tablet 75 mcg PO DAILY 04/02/25 0 04/02/25 History Allergies Allergy/AdvReac Type Severity Reaction Status Date / Time amoxicillin Allergy Intermediate Rash Verified 04/02/25 16:02 Penicillins Allergy Intermediate Rash Verified 04/02/25 16:02 Exam Const: General: healthy appearing and alert Orientation/consciousness: patient oriented x3 Resp: Effort & Inspection: normal respiratory effort : External Female Exam: normal external appearance Speculum Exam - Vagina: normal appearance of the vagina and normal vaginal discharge Speculum Exam - Cervix: normal appearance of the cervix Bimanual exam- vagina & uterus: uterine size normal and consistency normal Bimanual Exam- Adnexa, other: normal adnexae and No adnexal tenderness Neuro: General: patient oriented x3 Assessment and Plan Assessment and plan (1) History of postmenopausal bleeding: Code(s): Z87.42 - Personal history of other diseases of the female genital tract Status: Acute Assessment and Plan: Plan to proceed with D&C hysteroscopy
[2025-04-06] MEDS: LACTATED RINGERS 1,000 ML 30 ML IV CONT (07:45)
[2025-04-06 08:08] VITALS: BP 180/96; PULSE 83; RESP 16; TEMP 36.5; O2SAT 99
[2025-04-06] MEDS: ACETAMINOPHEN 500 MG TABLET 1000 MG PO (08:10)
--- NOTE | 2025-04-06 08:38 | WPDANESEPPF ---
Anes - Initial Pre Proc Eval Procedure: Operation Date: 04/06/25 09:15 Proposed Procedures p Hysteroscopy Dilation and Curettage - Stephany Weaver MD Date/Time: 04/06/25 08:38 Surgeon: Stephany Weaver MD Pre Op Diagnosis: post menopausal bleeding Patient Data Age: 54 Gender: F Height: 1.63 m Weight: 88.8 kg Last Vital Signs Temp 36.5 C 04/06/25 08:08 Pulse 83 04/06/25 08:08 Resp 16 04/06/25 08:08 BP 180/96 H 04/06/25 08:08 Pulse Ox 99 04/06/25 08:08 O2 Del Method Room Air 04/06/25 08:08 Allergies Allergy/AdvReac Type Severity Reaction Status Date / Time amoxicillin Allergy Intermediate Rash Verified 04/06/25 08:06 Penicillins Allergy Intermediate Rash Verified 04/06/25 08:06 Home Medications ?Medication ?Instructions ?Recorded ?Confirmed ?Type atorvastatin 10 mg tablet 10 mg PO HS 04/02/25 04/02/25 History ergocalciferol (vitamin D2) 1,250 50,000 unit PO WEEKLY 04/02/25 04/02/25 History mcg (50,000 unit) capsule ibandronate 150 mg tablet 150 mg PO MONTHLY 04/02/25 04/02/25 History levothyroxine 75 mcg tablet 75 mcg PO DAILY 04/02/25 04/06/25 History Patient hx anesthesia problems: none Family hx anesthesia problems: none Results Review: All pre-operative results and documents have been reviewed as part of the pre-operative evaluation. 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 Family History Family History Mother Patient's mother is in good health Father Patient's father is in good health Social History Social History Smoking status: Never smoker Second hand tobacco smoke exposure: No Alcohol intake: never Living arrangements: with family Spiritual care concerns: No Anes - Eval Final PreProcedure Day of Procedure 04/06/25 08:38 Patient weight: obese Heart: regular rate and rhythm Lungs: clear to auscultation Airway: Mallampati scale class II Neurological: alert and oriented Last oral intake: >/= 8 hours ASA classification: II Emergent: no Anesthetic plan: proceed Anesthesia type and monitoring: general GIVS and standard monitoring Results Review: All pre-operative results and documents have been reviewed as part of the pre-operative evaluation. Informed Consent: The patient's anesthetic plan and its attendant risks and benefits were discussed with the patient/family/POA. Questions were solicited and answers provided to the satisfaction of the patient/family/POA.
[2025-04-06 09:00] VITALS: BP 163/86; PULSE 80
[2025-04-06] MEDS: KETOROLAC 30 MG/ML VIAL (*BKC) IV PUSH (09:46)
--- NOTE | 2025-04-06 09:48 | S_PTH ---
PATIENT: Ximena Herrera LOC: [facility] U#:[id number] AGE/SX: 54/F ROOM: RE04/06/[address]: Stephany Weaver MD : 1970 BED: DIS: 04/06/2025 SPEC #: [id number] RECD: 04/06/25 11:37 STATUS: SHENA REQ #: [id number] STEPHANIE: 04/06/25 09:[address]: Stephany Weaver DEPT: [facility] Surgical RECD BY: Ca Magaña ENTERED: 04/06/25 11:37 SP TYPE: Surgical OTHR DR: Aliyah Thompson, NET TRAINER Tissues: A - Endometrial Curettings Procedures: Hematoxylin and Eosin Stain Gross and Microscopic Level 4
--- NOTE | 2025-04-06 09:49 | W.PM.PROC2 ---
Procedure Note - Detailed Date of Procedure 04/06/25 Pre-op Diagnosis post menopausal bleeding Post-op Diagnosis Same Procedure Performed D&C hysteroscopy Surgeon Stephany Weaver MD Anesthesia MAC Findings Uterus sounds to 8cm and appears grossly atrophic Description of Procedure The patient was taken to the operating room and placed under anesthesia in the dorsal lithotomy position. She was prepped and draped in usual sterile fashion. A bivalve speculum was placed in vagina and the cervix grasped on the anterior lip with a tenaculum. The uterus is sounded to 8cm. The hysteroscope was placed and with no abnormalities placed was removed. The sharp curette was used to curette the endometrium until a good uterine cry was noted all areas. All instruments are then removed. Sponge, needle, and instrument counts are correct per the OR staff. The patient was taken to recovery in stable condition. Estimated Blood Loss 5 Drains No Packing No Pathology Yes (Endometrial curettings) Complications No immediate complications Condition Stable Disposition PACU
[2025-04-06 09:53] VITALS: BP 131/64; PULSE 74; O2SAT 97
[2025-04-06 10:57] VITALS: BP 156/66; PULSE 54
== END 2025-04-06 10:55 | disposition home or self-care (01) ==
PROVIDERS: PCP Nurse Practitioner Family; Visit Provider Obstetrics & Gynecology Gynecology
PROC: 0U5B8ZZ Destruction of Endometrium, Via Natural or Artificial Opening Endoscopic (ICD-10-PCS; CPT 58563; principal; 2025-04-06 09:15)
DX: N85.8 Other specified noninflammatory disorders of uterus (principal); E03.9 Hypothyroidism, unspecified; E66.9 Obesity, unspecified; Z68.33 Body mass index [BMI] 33.0-33.9, adult; Z79.83 Long term (current) use of bisphosphonates; Z98.890 Other specified postprocedural states; Z87.42 Personal history of other diseases of the female genital tract
CPT/HCPCS: 58558; 88305; A9270; J1100; J1885; J2003; J2250; J2405; J2704; J3010; J7120

== ENCOUNTER 2025-05-07 08:43 | Outpatient (CLI) | payer OTHER, SELFPAY ==
--- NOTE | ~2025-05-07 | MMUS_ITS ---
EXAMINATION: US breast RT limited, MM diagnostic jacklyn RT w erasto HISTORY: 6 month follow up TECHNIQUE: [Additional images of the [[right breast]] were performed using full field digital mammography. 3-D tomosynthesis were also obtained and synthetic 2- D images were generated. CAD analysis was submitted and interpreted. High resolution [right breast ultrasound was performed.] ] COMPARISON: Mammograms from 11/04/2024, 10/30/2024, 09/18/2023 and 08/24/2022 BREAST PARENCHYMAL COMPOSITION: There are scattered areas of fibroglandular density. FINDINGS: MAMMOGRAPHIC FINDINGS: Focal asymmetry in the upper-outer quadrant of the right breast, middle depth. No suspicious calcifications or architectural distortion. ULTRASOUND: There is a 5 x 5 x 3 mm hypoechoic mass in the right breast in the 7:00 position 5 cm from nipple. The finding is wider than tall. No internal color flow. No posterior acoustic shadowing. The finding is probably benign. The finding measured 5 x 5 x 3 mm on 11/04/2024. There is a 4 x 4 x 3 mm hypoechoic cyst versus solid mass in the right breast at 7:00 position 5 cm from the nipple. The finding is wider than tall the margins are well-circumscribed. No internal color flow. No posterior acoustic shadowing. The finding is probably benign. The finding measured 6 x 5 x 5 mm on 11/04/2024. There is a 6 x 7 x 5 mm hypoechoic cyst versus solid mass in the right breast 9:00 position posterior depth. The finding is wider than tall. Margins are partially circumscribed. No internal color flow. No posterior acoustic shadowing. The finding is probably benign. The finding measured 6 x 5 x 5 mm on 11/04/2024. IMPRESSION/RECOMMENDATION: 1. Probably benign findings in the right breast. A diagnostic right breast mammogram in a diagnostic right breast ultrasound. BI-RADS 3-Probably benign-Short interval follow-up suggested. Reviewed, dictated and finalized at location Q. IMPRESSION/RECOMMENDATION: 1. Probably benign findings in the right breast. A diagnostic right breast mamm ogram in a diagnostic right breast ultrasound. BI-RADS 3-Probably benign-Short interval follow-up suggested. IMPRESSION/RECOMMENDATION: 1. Probably benign findings in the right breast. A diagnostic right breast mamm ogram in a diagnostic right breast ultrasound. BI-RADS 3-Probably benign-Short interval follow-up suggested.
--- OUTSIDE RECORDS SUMMARY | 2025-05-07 09:10 | XMS_ITS | Clinical Summary ---
Author Organization [address] Address [address] [place] [id number] Care Team Providers Care Pool Hand Name Role Phone Aliyah Thompson NP Primary Care Provider [phone] Stephany Weaver MD Unavailable [phone] Allergies Active Allergy Reactions Criticality Noted Date Comments Amoxicillin Rash Medium 04/21/2018 Medications levothyroxine (SYNTHROID, LEVOTHROID) 75 mcg tablet TK 1 T PO QD 3 03/20/2018 Activ e FLUZONE QUAD 7420-4792, PF, 60 mcg (15 mcg x 4)/0.5 [...] total) by mouth once a week Active lisinopriL (PRINIVIL,ZESTR IL) 10 mg tablet Take 1 tablet (10 mg total) by mouth daily 90 tablet 1 04/07/2025 Active Active Problems Problem Noted Date Diagnosed Date White coat syndrome without diagnosis of hyperte nsion 02/04/2025 Assessment & Plan (02/08/2025 11:07 AM CDT): Mixed hyperlipidemia 02/04/2025 Assessment & Plan (02/08/2025 11:07 AM CDT): Osteopenia after menopause 02/04/2025 Acquired hypothyroidism 02/04/2025 Assessment & Plan (02/08/2025 11:07 AM CDT): Screening for colon cancer 01/10/2022 Overview (01/10/2022): Added automatically from request for surgery [id number] Encounters Date Type Department Care Team Description 05/01/2025 3:45 PM CDT Clinical Support [facility] Medical [facility] Primary Care at [address] [phone] 04/10/2025 Orders Only [facility] Primary Care at [address] [phone] ProviderLio MD 04/07/2025 Orders Only [facility] Primary Care at [address] [phone] Aliyah Thompson NP 02/08/2025 Results Follow-Up [facility] Primary Care at [address] [phone] Aliyah Thompson NP Gamma GT, Comprehensive metabolic panel, eGFR 02/06/2025 9:48 AM CDT - 02/06/2025 11:59 PM CDT Hospital Encounter [address] [phone] Elevated liver enzymes Discharge Disposition: Discharge to home or self care 02/06/2025 9:45 AM CDT Lab [facility] Outpatient Lab at [address] [phone] 02/04/2025 12:30 PM CDT Office Visit [facility] Primary Care at [address] [phone] Aliyah Thompson NP Mixed hyperlipidemia (Primary Dx); Acquired hypothyroidism; White coat syndrome without diagnosis of hypertension; Elevated liver enzymes 02/04/2025 Orders Only [facility] Primary Care at [address] [phone] ProviderLio MD 02/04/2025 Telephone [facility] Medical [facility] Primary Care at [address] [phone] Aliyah Thompson [employer] from Last 3 Months Immunizations Immunization Administration Dates Next Due Influenza, Quadrivalent, Spl it, Intramuscular 05/03/2019 Influenza, Quadrivalent, Spl it, Preservative Free, Intramuscular 05/18/2021,05/08/2020,05/04/2018,05/02 Influenza, Trivalent, IM (MDV) 05/02/2017,2012 Influenza, Trivalent, Preser vative Free, Intramuscular 05/01/2025,03/25/2016,05/14/2015 Influenza, Trivalent, Recomb inant, Egg Free, Preservative [...] 10/26/2020 Zoster Vaccine (1 of 2) 10/03/2021 Cervical Cancer Screening 04/22/2025 04/22/2024 Breast Cancer Screening-Mammogram 10/30/2025 10/30/2024 Depression Screening 02/04/2026 02/04/2025 Colon Cancer Screening-Colonoscopy 01/21/2032 01/20/2022 Influenza Vaccine Completed 05/01/2025, , 05/18/2021, Additional history exists Pneumococcal vaccine <65 Aged Out No longer eligible based on patient's age to complete this topic Procedures Procedure Name Priority Date/Time Associated Diagnosis Comments US PELVIS W ENDOVAGINAL Schedule Routine, Read Routine (OP Routine) 03/31/2025 1:07 PM CDT EGFR Routine 02/06/2025 10:12 AM CDT Elevated liver enzymes COMPREHENSIVE METABOLIC PANEL Routine 02/06/2025 10:12 AM CDT Elevated liver enzymes GAMMA GT Routine 02/06/2025 10:12 AM CDT Elevated liver enzymes HM MAMMOGRAPHY Routine 10/30/2024 8:01 AM CDT COLONOSCOPY 01/20/2022 9:37 AM CDT from Last 3 Months or Most Recently Relevant to Health Maintenance Results * US Pelvis W Endovaginal (03/31/2025 1:07 PM CDT) Anatomical Region Laterality Modality Pelvis N/A Ultrasound us Historical Provider MD IMG US PROCEDURES Final R esult * eGFR (02/06/2025 10:12 AM CDT) eGFR [...] ORDERABLES Final Re sult Performing Organization Address [facility] Co de Phone Number [facility] [phone] [place] [address] * (ABNORMAL) Gamma GT (02/06/2025 10:12 AM CDT) GGT 129(H) 5 - 35 Units/L Blood 02/06/2025 10:1 2 AM CDT 02/06/2025 2:47 PM CDT Aliyah Thompson NP LAB BLOOD ORDERABLES Final Re sult Performing Organization Address City/[facility] Co de Phone Number SUN[facility] [phone] [address] Department of [employer] [place], [place] [id number] * Comprehensive metabolic panel (02/06/2025 10:12 AM CDT) Sodium 141 135 - 145 mmol/L Potassium, pl 4.6 3.3 - 4.9 mmol/L [facility] Chloride 106 97 - 110 mmol/L [facility] CO2 26 22 - 32 mmol/L [facility] Anion gap 9 2 - 15 mmol/L [facility] BUN 11 6 - 25 mg/dL [facility] Creatinine 0.82 0.60 - 1.10 mg/dL [facility] Glucose 89 70 - 199 mg/dL [facility] Comment: Interpretive Data Fasting glucose >/= 126 [...] 2022. Calcium 9.3 8.5 - 10.3 mg/dL [facility] Bilirubin, total 0.7 0.1 - 1.2 mg/dL [...] LAB BLOOD ORDERABLES Final Re sult [facility] [phone] [address] [place] [address] * HM MAMMOGRAPHY (10/30/2024 8:01 AM CDT) Historical Provider HEALTH MAINTENANCE Final Result * COLONOSCOPY (01/20/2022 9:37 AM CDT) Anatomical Region Laterality Modality Other Narrative Procedure Note Paul Holley MD - 01/20/2022 9:37 AM CDT [facility] Patient Name: Lori Herrera Procedure Date: 01/20/2022 9:37 AM Date of : 1970 Admit Type: Outpatient Age: 51 Gender: Female Attending MD: Paul Holley M.D. Room: [facility] ENDOSCOPY ROOM 2 Note Status: Finalized Patient [...] scope was passed under direct vision. TheColonoscope [id number] was introduced through the anus and advanced [...] malignant neoplasm of colon CPT copyright 2020 [employer]. All rights reserved. The codes documented in this report are preliminary and upon maternity nurse reviewmay be revised to meet current compliance requirements. Recognized by the [employer] [employer] for promoting quality in endoscopy us Paul Holley MD ENDOSCOPY PROCEDURES Final Re sult from Last 3 Months or Most Recently Relevant to Health Maintenance Insurance [facility] CHOICE PLUS [facility] CHOICE PLUS Advance Directives For more information, please contact: [phone] * Full Code (Latest Code Status on File) Date Activated Date Inactivated Comments 01/20/2022 9:32 AM 01/20/2022 3:59 PM * Full Code Date Activated Date Inactivated Comments 01/20/2022 9:32 AM 01/20/2022 9:32 AM Care Teams Pool Hand Relationship Specialty Start Date End Date Aliyah Thompson NP [address] [place] [address] PCP - General Family Medicine 02/04/25 Stephany Weaver MD [address] [place] [address] Referring Physician Gynecology 02/04/25
== END 2025-05-07 08:44 | disposition home or self-care (01) ==
LOC: CHSIMG 08:44
PROVIDERS: PCP Nurse Practitioner Family; Visit Provider Obstetrics & Gynecology Gynecology
DX: N63.10 Unspecified lump in the right breast, unspecified quadrant (principal)
CPT/HCPCS: 76642; 77061; 77065; G0279